=== PATIENT | male | born 1970 | race Caucasian/White ===

== ENCOUNTER → 2021-03-05 | Day surgery (SDC) | payer OTHER ==
[2021-03-05] VITALS (8 sets, daily range): BP systolic 124–162; BP diastolic 62–103
[~2021-03-05] VITALS: Ht 165.1 cm; Wt 113.4 kg
[~2021-03-05] MED LIST: BENICAR20 MG PO; COLACE100 MG PO; PERCOCET 5-3251 EACH PO; SERTRALINE HYDR25 MG PO; ZOFRAN4 MG PO
== END | disposition home or self-care (01) ==
LOC: SDC 03-02 13:15
PROVIDERS: ATTEND Surgery
DX: K46.9 Unspecified abdominal hernia without obstruction or gangrene (principal); I10 Essential (primary) hypertension; F41.9 Anxiety disorder, unspecified; K21.9 Gastro-esophageal reflux disease without esophagitis; Z98.1 Arthrodesis status; Z20.822 Contact with and (suspected) exposure to COVID-19; Z79.899 Other long term (current) drug therapy

== ENCOUNTER → 2022-06-21 | Day surgery (SDC) | payer OTHER ==
[~2022-06-21] VITALS: Ht 165.1 cm; Wt 113.4 kg
[~2022-06-21] MED LIST changes: +ENTOCORT PO; +MESALAMINE DR400 MG PO
[2022-06-21 08:42] VITALS: BP 156/98
[2022-06-21 09:52] VITALS: BP 114/85
[2022-06-21 10:07] VITALS: BP 132/88
[2022-06-21 10:22] VITALS: BP 114/78
== END | disposition home or self-care (01) ==
LOC: SDC 06-17 09:30
PROVIDERS: ATTEND Surgery
DX: Z12.11 Encounter for screening for malignant neoplasm of colon (principal); I10 Essential (primary) hypertension; F41.9 Anxiety disorder, unspecified; K21.9 Gastro-esophageal reflux disease without esophagitis; Z79.899 Other long term (current) drug therapy